=== PATIENT | female | born 1985 ===

== ENCOUNTER 2018-10-28 21:09 | Emergency (ER) | payer OTHER ==
[~2018-10-28] VITALS: Ht 167.6 cm; Wt 134.7 kg
[2018-10-28] MEDS ORDERED: ORPHENADRINE C100 MG PO (22:25)
[2018-10-28] MEDS ORDERED: KETO10TA2 PO (22:25)
== END 2018-10-28 22:36 | disposition home or self-care (01) ==
LOC: ER 21:09
DX: M94.0 Chondrocostal junction syndrome [Tietze] (principal)